=== PATIENT | female | born 1985 | race Caucasian/White ===

== ENCOUNTER 2018-12-03 02:20 | Inpatient (IN) | payer OTHER ==
[~2018-12-03] VITALS: Ht 160 cm; Wt 75.4 kg
[2018-12-03 02:32] VITALS: Ht 160 cm; Wt 75.4 kg
--- NOTE | 2018-12-03 02:46 | NUR ---
FISHING GEAR MECHANIC AT BEDSIDE FOR LAB DRAWE
--- NOTE | 2018-12-03 02:48 | NUR ---
PT BIB SELF C/O RADIATING LEFT CP TO LEFT SHOULDER PRESSURE LIKE PAIN X 1 DAY. PAIN STARTED WHEN SHE WOKE UP YESTERDAY MORNING. PT STS HER LEFT UPPER EXTREMITY "FEELS HEAVY." PT DENIES NAUSE OR DIZZINESS AT THIS TIME. PT IS AAOX4, NO DISTRESS NOTED, NO NUERO DEFICITS. PT REPORTS BEING 10WEEKS POST AND HAD PREECLAMPSIA DURING THIS PAST PREGANANCY. MSE COMPLETED BY DR LUNDBERG. PT GOWNED PLACED ON FULL CMERI MD AWARE OF VS. WILL CONT TO MONITOR.
--- NOTE | 2018-12-03 03:02 | NUR ---
XRAY AT BEDSIDE.
[2018-12-03 03:04] LABS: BASOPHIL % 1.6 % (0-2); CALCIUM 8.5 mg/dL (8.5-10.1); CARBON DIOXIDE 25.3 mmol/L (21-32); CHLORIDE SERUM 104 mmol/L (98-107); CREATININE SERUM 0.6 mg/dL (0.6-1.0); GFR1 > 60 mL/min; GLUCOSE SERUM 123 mg/dL (74-106); PLATELET COUNT 292 x10^3mcL (130-400); POTASSIUM SERUM 3.7 mmol/L (3.5-5.1); SODIUM SERUM 140 mmol/L (136-145)
[2018-12-03 03:10] LABS: RED CELL DISTRIBUTION WIDTH 15.4 % (11.5-14.5)
[2018-12-03 03:11] LABS: ALBUMIN 3.8 g/dL (3.4-5.0); ALKALINE PHOSPHATASE 89 U/L (46-116); ALT/SGPT 37 U/L (14-59); AST/SGOT 125 U/L (15-37); BILIRUBIN TOTAL 0.2 mg/dL (0.20-1.00); TOTAL PROTEIN, SERUM 7.6 g/dL (6.4-8.2)
--- NOTE | 2018-12-03 03:35 | NUR ---
DR LUNDBERG AT BEDSIDE DISCUSSING PLAN OF CARE WITH PATIENT.
--- NOTE | 2018-12-03 04:07 | NUR ---
LAB CALLED FOR DRAW OF PTT
--- NOTE | 2018-12-03 04:30 | NUR ---
PT AMBULATED TO RESTROOM WITH STEADY GAIT.
--- NOTE | 2018-12-03 04:32 | NUR ---
MEDICATED PER MD ORDER, SEE EMAR. HEPARIN DRIP INFUSING NO PROB, PT IS AAOX4, NO DISTRESS NOTED, RESP E/U. WILL CONT TO MONITOR.
--- NOTE | 2018-12-03 04:34 | NUR ---
NOTED THAT IV WAS INFILTRATED, CHANGED HEPARIN INFUSION TO RAC IV. HEPARIN INFUSING NO PROB. REMOVED LAC IV. WILL CONT TO MONITOR.
[2018-12-03 04:43] LABS: CHOLESTEROL/HDL RATIO 5.5; MAGNESIUM 1.9 mg/dL (1.8-2.4); PHOSPHOROUS 4.5 mg/dL (2.5-4.9)
[2018-12-03 04:44] LABS: UA SPECIFIC GRAVITY 1.025 (1.005-1.035)
[2018-12-03 04:45] LABS: urine erythrocyte NEGATIVE (NEGATIVE)
[2018-12-03 04:46] LABS: microscopic required? YES
[2018-12-03] MEDS ORDERED: LISINOPRIL10 MG PO (04:47)
--- NOTE | 2018-12-03 05:00 | NUR ---
PT SISTER ARRIVED AND IS AT BEDSIDE. PT IN NO DISTRESS, RESTING IN POSITION OF COMFORT IN BED, RESP E/U. WILL CONT TO MONITOR. HEPARIN DRIP INFUSING NO PROB.
--- NOTE | 2018-12-03 06:03 | NUR ---
GAVE REPORT TO ARPITA FARIAS, WHO WILL RESUME FURTHER CARE OF THIS PATIENT.
[2018-12-03] MEDS ORDERED: LABETALOL HYDR300 MG PO (06:13)
[2018-12-03 06:44] VITALS: BP 137/91
--- NOTE | 2018-12-03 06:50 | NUR ---
[facility] BY RN AND TRANSPORTER./ PT IS A/O X4, PT AMBULATED ROM GUERNEY TO BED WITHOUT GAIT OR BALANCE IMPAIRMENT. PT IS ON TELE #6 AND IS NSR. PT DENIES CHEST PAIN AT THIS TIME. PT HAS COMPLAINT OF LEFT ARM PAIN. HR 75, PT DENIES CHEST PAIN AT THIS TIME. LAST BM IS 12/03/18, ABD IS SOFT AND NON TENDER, BOWEL SOUNDS PRESENT AND ACTIVE IN ALL 4 QUADRANTS. VOIDS FREELY. DENIES DYSURIA, PT ORIENTED TO ROOM AND INSTRUCTED TO USE CALL LIGHT TO MAKE NEEDS KNOWN. WILL ENDORSE CARE TO SHANNA FARIAS.
--- NOTE | 2018-12-03 07:35 | NUR ---
RECIEVED PT RESTING COMFORTABLY IN BED WITH MOTHER AT BEDSIDE. TELE MONITOR #[address]. PT REPORTS NO PAIN OR DISTRESS AT THIS TIME. A/O X4. IV IN LAC INTACT, PATENT, AND INFUSING HEPARIN DRIP WELL AT 900 UNITS/HR PER HEPARIN PROTOCAL. PT TOLERATING WELL.SAFETY PRECAUTIONS IN PLACE. CALL LIGHT WITHIN REACH. WILL ASSESS, DOCUMENT, AND CONTINUE TO MONITOR.
--- NOTE | 2018-12-03 09:30 | NUR ---
ROUNDS MADE, DR AHN, DR BYRD, AND CHARGE NURSE AT BEDSIDE. POC REVIEWED WITH PATIENT AND MOTHER. PLAN IS FOR PT TO BE TRANSFERED TO [facility] FOR CARDIAC CATHETERIZATION. PT AND MOTHER VERBALIZE UNDERSTANDING AND ALL CONCERNS ADDRESSED.
--- NOTE | 2018-12-03 09:35 | NUR ---
[facility]- [employer] TRUCK DRIVER NOTIFIED THAT PATIENT HAS ORDER TO BE TRANSFERRED TO HIGHER LEVEL OF CARE FOR CARDIAC CATHETERIZATION. ATTENDING NURSE SHANNA FOLEY.
--- NOTE | 2018-12-03 10:52 | NUR ---
SPOKE WITH DR WOLF -CARDIOLOJOHN RE: PER OB/GYN NURSE CARDIOLOGY CONSULT REQUESTED TO BE DONE PRIOR TO TRANSFER. DR WOLF SAID THAT HE IS AWARE AND HE WILL SEE PATIENT TODAY. DR WOLF MADE AWARE THAT PATIENT AND PATIENT'S MOTHER ARE REQUESTING TRANSFER. LEAD ESTHETICIAN YOLA MADE AWARE.
--- NOTE | 2018-12-03 10:55 | NUR ---
DR ALLIE LOCKE AWARE OF UA RESULTS. NO NEW ORDERS RECIEVED.
[2018-12-03 11:42] VITALS: BP 129/85
--- NOTE | 2018-12-03 11:55 | NUR ---
DR. KELLEY MADE AWARE OF TROPONIN 22.976 AND CKMB 192.4. NO NEW ORDERS RECEIVED. PER DR. KELLEY SHE WILL NOTIFY DR. AHN OF THE ABOVE RESULTS.
--- NOTE | 2018-12-03 12:15 | NUR ---
PATIENTS PTT 40.8, PER HEPARIN PROTOCAL REBOLUS OF HEPARIN 3000 UNITS IV GIVEN AND INCREASED HEPARIN DRIP TO 1000 UNITS/HR (10 ML/HR) PER HEPARIN PROTOCAL. NEXT PTT ORDER FOR 1615.
--- NOTE | 2018-12-03 14:51 | NUR ---
PER [facility] TE[facility]NOLOG[facility] PATIENT IS GOING TO [facility], ROOM [address], REPORT TO BE CALLED AT [phone]. [address] WOLF- CARDIOLOGY PATIENT NEEDS HEPARIN DRIP DURING TRANSPORTATION. DR AHN NOTIFIED AND HE GAVE TELEPHONE ORDERS TO TRANSFER PATIENT TO [facility]IA [facility]. ATTENDING NURSE SHANNA FOLEY.
[2018-12-03] MEDS ORDERED: HEPARIN 2525000 UNI1 IV (15:00)
[2018-12-03 15:04] VITALS: BP 129/85; BP 131/83
--- NOTE | 2018-12-03 15:23 | NUR ---
CALLED IN REPORT TO [facility] AT [phone]. SPOKE WITH STANTON AND GAVE REPORT ON PATIENT. ALL QUESTIONS AND CONCERNS ADDRESSED. TRANSPORT IN ROUTE TO [facility] PT.
--- NOTE | 2018-12-03 15:59 | NUR ---
CCT AND AMBULANCE AT BEDSIDE TO TRANSFER PT TO [facility]. DISCUSSED PT CURRENT DIAGNOSIS, DISCHARGE/TRANSFER INSTRUCTIONS GIVEN AND SIGNED BY PATIENT. PT VERBALIZES UNDERSTANDING OF TEACHINGS IS AWARE OF TRANSFER. ALL QUESTIONS ANSWERED. ALL DISCHARGE FORMS SIGNED, ALL ID BANDS REMOVED FROM PT. TELE MONITOR REMOVED AND RETURNED. IV DISCONNECTED FROM HEPARIN DRIP. IV SITE CLEAR AND INTACT. PT WAS TAKEN OUT BY [place] BY TWO [facility] TECHS AND ONE [facility] NURSE, WHO ALSO RECIEVED REPORT ON PT. PT A/O X4 UPON LEAVING WITH NO S/S OF PAIN OR RESPIRATORY DISTRESS.
== END 2018-12-03 16:05 | disposition short-term general hospital (02) | DRG 190 ==
LOC: ED 02:20 → DU 04:35
PROVIDERS: Emergency Medicine; ADMIT General Practice
DX: I21.4 Non-ST elevation (NSTEMI) myocardial infarction (principal); I10 Essential (primary) hypertension; Z82.49 Family history of ischemic heart disease and other diseases of the circulatory system; Z98.891 History of uterine scar from previous surgery
CPT/HCPCS: 83880; 85378; J1644